=== PATIENT | female | born 1990 | race African-American/Black ===

== ENCOUNTER 2025-09-14 13:01 | Emergency (ER) | payer OTHER, SELFPAY ==
[2025-09-14 13:03] VITALS: BP 122/61; PULSE 76; RESP 18; TEMP 36.3; O2SAT 98; BMI 59.2
--- NOTE | 2025-09-14 13:08 | ED_ITS ---
HPI - General Adult General Chief complaint: Skin/Abscess/Foreign Body Stated complaint: bump on forehead and left side neck. Facial pain Time Seen by Provider: 09/14/25 14:25 Source: patient and RN notes reviewed Mode of arrival: ambulatory Limitations: no limitations History of Present Illness ED Provider: Irina Pacheco PA-C HPI narrative: This is a [id number]-female who presents to the ER with concerns of left forhead lump and lump in the left side of her neck. She states that yesterday noted what appeared to be a small pimple on the left side of her forehead. She picked at the lesion with minimal drainage. This morning she awoke with significant enlargement of the lesion, associated swelling extending to the left side of the neck and increased pain. She denies fever or chills at home but feels cold in the department. She denies dysphagia or shortness of breath. She reports several days of presumed allergy symptoms with watery eyes, nasal congestion, rhinorrhea, and mild productive cough yielding yellowish sputum. No chest pain, no abdominal pain, nausea, or vomiting. No other complaints or concerns at this time. MD complaint: Bump on face Onset (ago): day(s) Relieving factors: none Exacerbating factors: none Associated symptoms: denies other symptoms Treatments prior to arrival: none Related Data Previous Rx's ?Medication ?Instructions ?Recorded cephalexin 500 mg capsule 500 mg PO QID 7 days #28 cap s 09/14/25 doxycycline hyclate 100 mg capsule 100 mg PO BID 7 day s #14 caps 09/14/25 Allergies Allergy/AdvReac Type Severity Reaction Status Date / Time levetiracetam (From [facility]) AdvReac Unknown Verified 09/14/25 13:07 Review of Systems Review of Systems: Constitutional : No Fever, No Chills ENT/Mouth : No sore throat, No Rhinorrhea Eyes: No Eye Pain, No Swelling, No Redness Cardiovascular : No Chest Pain, No SOB Respiratory : + Cough, No Sputum Gastrointestinal : No Nausea, No Vomiting, No Diarrhea, No abdominal Pain Genitourinary : No Dysuria, No Hematuria Musculoskeletal : No joint pain, No Myalgias, No Joint Swelling Skin :+ Skin Lesions Neuro : No Weakness, No Numbness, No Headache All other systems reviewed and are negative Yes all other systems are reviewed and are negative Constitutional: Constitutional: Reports as per HPI [facility] Social History Social History Advance Directives: No Advance Directives Information Provided: Yes Physical Exam ED Vital Signs: Vital Signs - 24 hr 09/14/25 13:03 Temperature 97.4 F Pulse Rate 76 Respiratory Rate 18 Blood Pressure 122/61 Pulse Oximetry 98 Oxygen Delivery Method Room Air BMI result Body Mass Index 59.2 Const General: cooperative, comfortable and no acute distress Orientation/consciousness: patient oriented x3 Limitations: no limitations HENMT Other: Small, pea sized lymph node noted at the left anterior cervical region Head: Yes normal to inspection, Yes normocephalic and Yes atraumatic Ears: hearing grossly normal bilaterally and TM's normal bilaterally General nose exam: Normal external nose present Face and sinus: Yes normal facial exam Mouth: Normal oral and palatal mucosa present, oropharynx normal and moist mucous membranes Throat: Yes posterior oropharynx normal Eyes General: appearance normal, both eyes and all related structures Eyelids: Yes eyelids normal Conjunctivae: conjunctivae normal Sclerae: sclerae normal Pupils: Equal, round and reactive pupils present EOM: EOMs intact bilaterally Neck Neck: Yes normal visual inspection, Yes full ROM and Yes no lymphadenopathy Lymphatic: no lymphadenopathy noted Chest Chest palpation & inspection: normal inspection of the chest Resp Effort & Inspection: normal respiratory effort and able to speak in complete sentences Auscultation: clear to auscultation bilaterally, no crackles, no rales, no rhonchi and no wheezes Cardio Rate: regular rate Rhythm: regular rhythm Heart sounds: S1 normal heart sound present and S2 normal heart sound present GI Inspection: Yes normal to inspection Skin Other: mid forehead with 2cm x 2cm area of induration and erythema, tender, no drainage. Neuro General: patient oriented x3 and moves all extremities Cranial nerves: Yes Equal, round and reactive pupils present Extrem General: Yes normal to inspection Right upper extremity: normal to inspection Left upper extremity: normal to inspection Right lower extremity: normal to inspection Left lower extremity: normal to inspection Course Course Course Narrative: Kimberlee Flores [employer] 09/14 [id number] This is a rapid medical exam. Deferred additional HPI, ROS, PE to primary provider. 34 yo female with history of seizures, cardiomyopathy, anxiety, depression here with swelling and redness to left forehead. Noted a zit yesterday and manipulated it. This morning more swelling and redness. Also notes a swollen lymph node to left neck. No fevers, chills. Has had some nasal congestion and sneezing Will obtain strep and viral testing VSS Medications Administered Discontinued Medications Generic Name Dose Route Start Last Admin Trade Name Freq PRN Reason Stop Dose Admin Diphtheria/Tetanus/Acell Pertussis 0.5 ml 09/14/25 14:55 09/14/25 15:10 Diphth,Pertus(Acell),Tet Adult 0.5 Ml Syringe IM 09/14/25 14:56 0.5 ml .ONCE ONE Administration Medical Decision Making Medical Decision Making [facility] Narrative: This is a 34 y/o F, with a hx of abscence seizures, who presents to the ED with concerns of facial lesion and left sided neck swelling. Also endorsing URI symptoms. Vital signs WNL. She is speaking in full sentences under no acute distress. No obvious facial swelling. No trismus, drooling or dysphonia. Lungs CTAB. Laboratory data relevant for visit: Rapid testing for COVID-19, Influenza, and RSV negative. Assessment & Plan Acute left facial/neck soft-tissue infection with associated lymphadenitis li alli secondary to manipulated skin lesion. Problem #1: Cellulitis with lymphadenitis Assessment: Acute localized infection manifested by tender, enlarged lymph node and swelling after manipulation of facial lesion. No systemic symptoms reported. Plan: * Initiate oral antibiotics (specific agent and dosing to be prescribed). * Discussed optional tetanus booster > updated today. * Symptomatic care for congestion/cough as needed. She was given strict return precautions, stable for d.c. Differential Diagnosis Differential Diagnoses: The differential diagnosis associated with the presentation includes cellulitis, abscess, cyst, contact dermatitis. Lab Data [facility] Lab Attestation statement: I reviewed the patient's lab results. negative Labs: Lab Results 09/14/25 Range/Units 13:18 Influenza Type A (PCR) NEGATIVE (Negative) Influenza Type B (PCR) NEGATIVE (Negative) RSV RNA Qual (PCR) NEGATIVE (Negative) SARS-CoV-2 RNA (RT-PCR) NEGATIVE (Negative) S. pyogenes GrpA LURDES Negative (Negative) Discharge Plan Discharge Clinical Impression: Cellulitis Patient Disposition: Home, Self-Care Instructions: Cellulitis (ED), Warm Compress or Soak (ED) Additional Instructions: You were seen in the emergency department today. You were found to have a skin infection, also known as cellulitis. Please take prescribed antibiotic as directed, finish the entire course even if your symptoms improve. Apply warm compresses to the area multiple times per day. Cephalexin is a antibiotic to be taken 4 times per day, doxycycline is twice a day. Ensure that you finish the entire course even if your symptoms improve. We also updated your tdap vaccine in the department, please update your records. If any new or worsening symptoms occur including but not limited to increased redness swelling, pain, fevers chills please seek emergent care. Prescriptions: New cephalexin 500 mg capsule 500 mg PO QID 7 Days Qty: 28 0RF doxycycline hyclate 100 mg capsule 100 mg PO BID 7 Days Qty: 14 0RF Interventions: ED Discharge Assessment Last Done: 09/14/25 15:00 Discharge Date/Time: 09/14/25 15:17 Print Language: Iraqi
[2025-09-14 13:34] LABS: IDNOW Serial# 55D5AD1C; Strep A Nucleic Acid Negative (Negative)
[2025-09-14 14:31] LABS: Resp Syncy Virus RNA Qual PCR NEGATIVE (Negative); SARS COV2 PCR INHOUSE NEGATIVE (Negative)
[2025-09-14 15:00] VITALS: BP 122/61; PULSE 76; RESP 18; TEMP 36.3; O2SAT 98
[2025-09-14] MEDS: Diphth,Pertus(ACell),Tet Adult 0.5 ML SYRINGE IM (15:10)
== END 2025-09-14 15:17 | disposition home or self-care (01) ==
PROVIDERS: Nurse Practitioner Family; Emergency Provider Emergency Medicine
DX: L03.211 Cellulitis of face (principal); I88.9 Nonspecific lymphadenitis, unspecified; Z23 Encounter for immunization; Z03.818 Encounter for observation for suspected exposure to other biological agents ruled out
CPT/HCPCS: 87637; 87651; 90471; 90715; 99282; 99284